=== PATIENT | female | born 1960 | race Caucasian/White ===

== ENCOUNTER 2024-02-27 19:34 | Emergency (ER) | payer BC, SELFPAY ==
[2024-02-27] VITALS (7 sets, daily range): BP systolic 99–132; BP diastolic 58–80
--- NOTE | 2024-02-27 20:00 | ED.GENMED ---
History of Present Illness
General
Chief Complaint: Chest Pain
Source: patient and spouse
Exam Limitations: none
Time Seen by Provider: 02/27/24 19:43
Nursing documentation reviewed up to this point in time: agreed with
Travel History
Have you had any contact with someone who has COVID-19?: No
Do you have any symptoms of coronavirus? Fever > 100 degrees, chills, cough, shortness of breath, sore throat, loss of taste or smell, muscle aches, or headache?: No
History of Present Illness
History of Present Illness:
63 yo female presents to the emergency department c/o left side chest pain radiating to neck/jaw and arm. Started at 1630.
Past History
Past History
ED Past Medical History: Psychiatric and Other (Alcohol abuse)
ED Past Surgical History: Gynecological
Social History
Tobacco: Other (She denies smoking cigarettes and vaping to me)
Alcohol: Daily
Drug: None
Personal: Single
Living: with family
Employment: Employed
Family History
Family History: Other (Noncontributory)
Review of Systems
Review of Systems
Allergies reviewed?: Yes
Constitutional: Reports no symptoms
EENT: Reports no symptoms
Respiratory: Reports trouble breathing
Cardiac: Reports chest pain
ABD/GI: Reports no symptoms
: Reports no symptoms
Musculoskeletal: Reports no symptoms
Skin: Reports no symptoms
Neurological: Reports no symptoms
Endocrine: Reports no symptoms
Hematologic/Lymphatic: Reports no symptoms
Psychiatric: Reports no symptoms
Phy Exam
Physical Exam
Physical Exam:
Physical Exam
General: no apparent distress, not acutely ill
Neck: supple. no meningeal signs. normal posterior pharynx
Heart: s1/s2 regular rate and rhythm, no murmur. equal radial
pulses.
HEENT: Pupils equal round reactive to light, EOMI
Lungs: no acute respiratory distress. clear bilaterally
Abdomen: normal bowel sounds. not tender. no CVAT
Neuro: alert and oriented. no focal neurological deficits cranial nerves II through XII intact
Skin: no rash
Psychiatric: well kept. interactive and cooperative
Extremities: no edema. no calf tenderness. negative homans. good distal pulses
Scores
Heart Score for Chest Pain Patients
STEMI patient?: No
History: Moderately Suspicious
ECG: Normal
Age: >45 - <65 years
Risk Factors: 1 or 2 Risk Factors
Troponin: </= Normal Limit
Heart Score for Chest Pain Patients: 3
Heart Score Risk: 2.5% MACE over next 6 weeks
Course
Orders/Labs/Results
Orders:
Orders
02/27/24 19:37
Electrocardiogram (*1) Urgent
Reason for Study: Chest Pain
EKG- Treatment ONCE
02/27/24 19:57
CMP [Comprehensive Metabolic Panel] Urgent
Complete Blood Count/With Diff Urgent
D-Dimer Urgent
Lipase Urgent
Troponin I Urgent
02/27/24 21:35
Aspirin Chewable [Low Strength Aspirin] 324 mg PO NOW STA
02/27/24 21:48
Nitroglycerin Sublingual [Nitrostat (Sublingual)] 0.4 mg .ROUTE .STK-MED ONE
Nitroglycerin Sublingual [Nitrostat (Sublingual)] 0.4 mg SL NOW STA
02/27/24 22:38
CR Chest - 2 Views Urgent
Comment:
Reason For Exam: left side chest pain
02/27/24 23:00
Troponin I Urgent
02/27/24 23:04
ECG [Electrocardiogram (*1)] Urgent
Reason for Study: Other
Other Reason for Exam: repeat troponin
EKG- Treatment ONCE
02/28/24 00:43
CT Abd/pelvis W Iv Cont Urgent
Comment:
Reason For Exam: chest pain, elevated lipase
Abnormal Lab Results
02/27/24
19:57
RBC 3.33 L 10^6/uL
(4.20-5.40)
Hgb 10.7 L g/dL
(12.0-16.0)
Hct 31.4 L %
(37.0-47.0)
MCH 32.1 H pg
(27.0-31.0)
Plt Count 464 H 10^3/uL
(130-400)
Chloride 110 H mmol/L
(98-107)
Carbon Dioxide 20 L mmol/L
(22-30)
BUN 22 H mg/dl
(7-17)
Creatinine 1.4 H mg/dL
(0.6-1.0)
Glucose 120 H mg/dl
(70-99)
Lipase 417 H U/L
(23-300)
02/27/24 19:57
02/27/24 19:57
Vital Signs
Initial and Last Documented VS:
Initial Vital Signs
Temp Pulse Resp BP Pulse Ox
98 F 90 24 132/80 98
02/27/24 19:38 02/27/24 19:38 02/27/24 19:38 02/27/24 19:38 02/27/24 19:38
Last Documented Vital Signs
Temp Pulse Resp BP Pulse Ox
98.7 F 72 20 103/64 97
02/27/24 22:45 02/28/24 00:41 02/28/24 00:41 02/28/24 00:41 02/28/24 00:41
MDM/Problems Addressed
Differential Diagnosis Includes:
ACS, PE, pancreatitis
MDM/Problems Addressed:
63-year-old female with possible gastritis, left-sided chest pain. Do not suspect ACS after 2 negative troponins, and no further pain. Will treat with Protonix, follow-up with primary care and cardiology.
Chronic conditions affecting care: HTN
Acute Exacerbation and/or Progression of Chronic Illness: HTN
*Radiology
Radiology exam reviewed: radiology read reviewed (CT A/P W/IV CONTRAST IMPRESSION: Comparison with 05/10/23. No definite CT findings to account for the reported pain/symptoms. No appendicitis or colitis. No evidence of small bowel obstruction.
Mild wall thickening along the gastric fundus which can be seen in the setting of gastritis. Underlyin)
*Pulse Oximetry
Patient hypoxic: no
*EKG
Interpreted by ED Provider?: Yes
EKG Intrepretation Date: 02/27/24
EKG Intrepretation Time: 19:41
Interpretation: normal
Comparison EKG: changes noted
Heart Rate: 82
Rate: normal
Rhythm: sinus
Bard: normal axis
Interval: normal interval
QRS Pattern: normal QRS
Ischemia: no ischemia
*Cancer Program Director Interpretation
Rate: normal
Interpretation: normal
Heart Rate: 75
Rhythm: sinus
*Critical Care Note
Total Time (30-74mins, 75-104mins- exclusive of procedures): Not Applicable
Patient Management
Social determinants of health affecting care: Living situation and Substance abuse (Chronic alcoholic)
Escalation/DeEscalation of care consider admission/obs:
Admit not indicated
ED Attending Note
-
Portions of this chart may have been created with voice recognition software.� Occasional wrong word or��sound alike� substitutions may have occurred due to the inherent limitations of voice recognition software.
Discharge Plan
Departure
Patient Disposition: Home (Routine Discharge)
Date of Disposition: 02/28/24
Time of Disposition: 01:50
Patient with high blood pressure during this ER visit?: Yes
Condition: Good
Discharge Problem:
Chest pain, Gastritis
Instructions: Gastritis, Chest Pain DCA Follow Up
Prescriptions:
No Action
omeprazole 40 MG capsule,delayed release(DR/EC)
40 mg PO DAILY
amlodipine [Norvasc] 5 mg Tablet
5 mg PO DAILY
atorvastatin 10 mg Tablet
10 mg PO DAILY
Vitamin D2
1 tab PO DAILY
iron
1 tab PO DAILY
Rx Instructions:
unsure of dose
losartan
1 tab PO DAILY
Rx Instructions:
unsure of dose
vitamin Q25-bjsfr acid
1 tab PO DAILY
Referrals:
Luz Meza CRNP [Family Provider] -
Ailyn Priest MD [Active] - Call in 1-3 days for appt
Interventions
Interventions:
*Risk Screen - Suicide Last Done: 02/27/24 19:38
*General Assessment Last Done: 02/27/24 19:43
*Neglect/Abuse Screening Last Done: 02/27/24 19:38
ED- Fall Risk Assessment Last Done: 02/27/24 22:45
*ED COVID-19 Vaccine History Last Done: 02/27/24 19:43
ED- Cardiac Assessment Last Done: 02/27/24 22:45
Discharge Date and Time
Print Language: HEBREW
[2024-02-27 20:05] LABS: % Eosinophils 4.1 % (0-6); % Immature Granulocytes 0.4 % (0-0.5); % Lymphocytes 37.5 % (20.5-51.1); % Monocytes 6.7 % (1.7-9.3); % Neutrophils 50.3 % (42.2-75.2); Absolute Basophils 0.1 10^3/uL (0-0.2); Absolute Eosinophils 0.3 10^3/uL (0-0.7); Absolute Lymphocytes 2.7 10^3/uL (1.2-3.4); Absolute Monocytes 0.5 10^3/uL (0.1-0.6); Absolute Neutrophils 3.6 10^3/uL (1.4-6.5); Hematocrit 31.4 % (37.0-47.0); Hemoglobin 10.7 g/dL (12.0-16.0); Mean Corp Hgb Conc. 34.1 g/dL (33.0-37.0); Mean Corpuscular Hgb 32.1 pg (27.0-31.0); Mean Corpuscular Volume 94.3 fL (81.0-99.0); Mean Platelet Volume 8.7 fL (7.4-10.4); Nucleated Red Blood Cells % 0 %; Platelet Count 464 10^3/uL (130-400); Red Blood Cell Count 3.33 10^6/uL (4.20-5.40); Red Cell Dist. Width 13.2 % (11.5-14.5); White Blood Cell Count 7.1 10^3/uL (4.8-10.8)
[2024-02-27 20:19] LABS: D-Dimer 0.41 ug/mlFEU (0.00-0.50)
[2024-02-27 20:26] LABS: ALT (SGPT) 20 U/L (0-35); AST (SGOT) 28 U/L (14-36); Albumin 4.7 g/dl (3.5-5.0); Alkaline Phosphatase 77 U/L (38-126); Blood Urea Nitrogen 22 mg/dl (7-17); Calcium 9.9 mg/dl (8.4-10.2); Carbon Dioxide 20 mmol/L (22-30); Chloride 110 mmol/L (98-107); Glucose 120 mg/dl (70-99); Lipase 417 U/L (23-300); Potassium 4.9 mmol/L (3.5-5.1); Sodium 144 mmol/L (135-145); Total Bilirubin 0.2 mg/dl (0.2-1.3); Total Protein 7.2 g/dl (6.3-8.2); eGFR 42.54
[2024-02-27 20:31] LABS: Troponin I < 0.012 ng/ml
[2024-02-27] MEDS: LOW STRENGTH ASPIRIN 324 MG PO (21:43)
[2024-02-27] MEDS: NITROSTAT (SUBLINGUAL) 0.400000000000000022 MG SL (21:50)
[2024-02-27 23:32] LABS: Troponin I < 0.012 ng/ml
[2024-02-28 00:41] VITALS: BP 103/64
[2024-02-28 02:00] VITALS: BP 120/60
== END 2024-02-28 02:00 | disposition home or self-care (01) ==
LOC: EMR 19:34
PROVIDERS: EMERGENCY PHYSICIAN Emergency Medicine; FAMILY PHYSICIAN Nurse Practitioner Adult Health
DX: R07.89 Other chest pain (principal); I10 Essential (primary) hypertension
CPT/HCPCS: 99284; 71046; 74177; 80053; 83690; 84484; 85025; 85379; 93005; Q9967